=== PATIENT | female | born 1950 | race Caucasian/White ===

== ENCOUNTER → 2016-07-27 | Outpatient (CLI) | payer BC ==
[~2016-07-27] MED LIST: ATOR20TA66; HYDR25TA4; LISI40TA; POTA20TA8; PRAM0.5T9; SUCR1ORA5 PO
--- NOTE | 2016-07-28 09:37 | Diagnostic Imaging Report ---
Bilateral screening mammogram The current study was also evaluated with a Computer Aided Detection (CAD) system. Indication: Screening. No current complaints stated on the questionnaire. COMPARISON: 05/19/15. FINDINGS: The breasts are composed of scattered fibroglandular densities. There are vascular calcifications seen. There is an intramammary lymph node stable from prior exam seen in the outer aspect of the left breast. Allowing for technique and positional differences, no suspicious change is seen. IMPRESSION: No significant change. ACR BI-RADS Category 2: Benign findings. Result letter will be mailed to the patient. Note: At least 10% of breast cancer is not imaged by mammography. Dictated by: Dictated on workstation # [id number]
== END ==
LOC: RAD 09:29
PROVIDERS: ATTEND Family Medicine
DX: Z12.31 Encounter for screening mammogram for malignant neoplasm of breast (principal)
CPT/HCPCS: 77067

== ENCOUNTER → 2017-09-10 | Outpatient (CLI) | payer BC, MEDICARE ==
--- NOTE | 2017-09-10 20:03 | Diagnostic Imaging Report ---
INDICATION: Screening. COMPARISON: Comparison made with prior examinations from 07/27/2016 back through 10/26/2014. The current study was also evaluated with a Computer Aided Detection (CAD) system. 3D tomosynthesis was also performed and reviewed. FINDINGS: There are scattered fibroglandular densities bilaterally. There is an unchanged small well-circumscribed density in the subareolar region of the right breast. There are a few benign-type calcifications. There is a lymph node in the left axilla. There is no new dominant mass, spiculated lesion, or suspicious calcification identified. The skin, nipples, and axillae are unremarkable. IMPRESSION: Benign. ACR BI-RADS Category 2: Benign findings. Result letter will be mailed to the patient. Note: At least 10% of breast cancer is not imaged by mammography. Dictated by: Dictated on workstation # [id number]
== END ==
LOC: RAD 14:34
PROVIDERS: ATTEND Family Medicine
DX: Z12.31 Encounter for screening mammogram for malignant neoplasm of breast (principal)
CPT/HCPCS: 77067

== ENCOUNTER → 2018-09-17 | Outpatient (CLI) | payer MEDICARE ==
--- NOTE | 2018-09-18 10:55 | Diagnostic Imaging Report ---
EXAMINATION: Digital mammogram. INDICATION: Bilateral screening with 3D tomosynthesis and cad. This study was compared to the prior exam of 09/10/2017, 07/27/2016 and 05/19/2015. At this time there are no current complaints. The current study was also evaluated with a Computer Aided Detection (CAD) system. FINDINGS: The fibroglandular tissue in both breasts is heterogeneously dense. This does limit the sensitivity of this exam. Overall, there does not appear to have been any significant change when compared to the prior study. No primary or secondary sign of malignancy is noted. IMPRESSION: There is no radiographic evidence for malignancy. ACR BI-RADS Category 1: Negative. Result letter will be mailed to the patient. Note: At least 10% of breast cancer is not imaged by mammography. Dictated by: Dictated on workstation # [id number]
== END ==
LOC: RAD 08:50
PROVIDERS: ATTEND Family Medicine
DX: Z12.31 Encounter for screening mammogram for malignant neoplasm of breast (principal)
CPT/HCPCS: 77067

== ENCOUNTER → 2019-09-17 | Outpatient (CLI) | payer MEDICARE ==
--- NOTE | 2019-09-17 11:56 | Diagnostic Imaging Report ---
INDICATION: Bilateral leg pain. Segmental pressure evaluation was performed. Ankle brachial index on the right is normal at 1.17. Ankle-brachial index on the left is normal at 1.13. IMPRESSION: Normal ankle-brachial indices. Dictated by: Dictated on workstation # [id number]
== END ==
LOC: RAD 10:30
PROVIDERS: ATTEND Family Medicine
DX: M79.605 Pain in left leg (principal); M79.604 Pain in right leg
CPT/HCPCS: 93922

== ENCOUNTER → 2019-09-23 | Outpatient (CLI) | payer MEDICARE ==
--- NOTE | 2019-09-23 12:53 | Diagnostic Imaging Report ---
INDICATION: Routine screening. COMPARISON: 09/17/2018 and 09/10/2017. TECHNIQUE: 2D and 3D bilateral screening mammography was performed with CAD. FINDINGS: Scattered fibroglandular densities are identified bilaterally. The intraparenchymal lymph node in the outer left breast appears stable. The overall parenchymal pattern appears stable. No dominant mass or malignant appearing microcalcifications are seen. There are surgical clips in the left axilla. IMPRESSION: No mammographic features suspicious for malignancy are identified. ACR BI-RADS Category 2: Benign findings. Result letter will be mailed to the patient. Note: At least 10% of breast cancer is not imaged by mammography. Dictated by: Dictated on workstation # [id number]
== END ==
LOC: RAD 09:33
PROVIDERS: ATTEND Family Medicine
DX: Z12.31 Encounter for screening mammogram for malignant neoplasm of breast (principal)
CPT/HCPCS: 77063; 77067

== ENCOUNTER 2020-03-13 07:49 | Emergency (ER) | payer MEDICARE ==
[~2020-03-13] VITALS: Ht 154 cm; Wt 114.0 kg
[2020-03-13] MEDS ORDERED: ACETAMINOPHEN 500 MG TAB (TYLENOL) ONE (08:15)
[2020-03-13] MEDS ORDERED: LACTATED RINGERS 1,000 ML IV ONE ×2 (08:15→08:30)
[2020-03-13 08:25] LABS: BASOPHILS # (AUTO) 0.1 10^3/uL (0.0-0.1); BASOPHILS % (AUTO) 1 % (0-10); EOSINOPHILS # (AUTO) 0.4 10^3/uL (0.0-0.3); EOSINOPHILS % (AUTO) 4 % (0-10); HEMATOCRIT 37 % (35-52); LYMPHOCYTES # (AUTO) 1.9 10^3/uL (1.0-4.0); LYMPHOCYTES % (AUTO) 17 % (12-44); MEAN CORPUSCULAR HEMOGLOBIN 23 pg (25-34); MEAN CORPUSCULAR HGB CONC 30 g/dL (32-36); MEAN CORPUSCULAR VOLUME 76 fL (80-99); MEAN PLATELET VOLUME 9.2 fL (9.0-12.2); MONOCYTES # (AUTO) 0.7 10^3/uL (0.0-1.0); MONOCYTES % (AUTO) 7 % (0-12); NEUTROPHILS # (AUTO) 7.7 10^3/uL (1.8-7.8); NEUTROPHILS % (AUTO) 71 % (42-75); PLATELET COUNT 329 10^3/uL (130-400); WHITE BLOOD COUNT 10.7 10^3/uL (4.3-11.0)
[2020-03-13] MEDS ORDERED: ACETAMINOPHEN 500 MG TAB (TYLENOL) PO ONE (08:30)
[2020-03-13 08:31] LABS: ALBUMIN 4.2 GM/DL (3.2-4.5)
[2020-03-13 08:32] LABS: CHLORIDE 101 MMOL/L (98-107); POTASSIUM 3.2 MMOL/L (3.6-5.0); SODIUM 139 MMOL/L (135-145)
[2020-03-13 08:33] LABS: CALCIUM 9.4 MG/DL (8.5-10.1)
[2020-03-13 08:34] LABS: GLUCOSE 122 MG/DL (70-105); TOTAL PROTEIN 7.8 GM/DL (6.4-8.2)
[2020-03-13 08:35] LABS: CARBON DIOXIDE 24 MMOL/L (21-32)
[2020-03-13 08:36] LABS: BILIRUBIN,TOTAL 1.1 MG/DL (0.1-1.0)
[2020-03-13 08:37] LABS: ALKALINE PHOSPHATASE 109 U/L (40-136)
[2020-03-13 08:38] LABS: CREATININE SERUM 0.83 MG/DL (0.60-1.30); GFR ESTIMATED > 60
[2020-03-13 08:39] LABS: BUN/CREATININE RATIO 25
[2020-03-13 08:41] LABS: ALANINE AMINOTRANSFERASE 18 U/L (0-55)
[2020-03-13] MEDS ORDERED: lisINopril 10 MG (PRINIVIL) TABLET ONE (09:22)
[2020-03-13] MEDS ORDERED: lisINopril 20 MG (PRINIVIL) TABLET PO ONE (09:30)
[2020-03-13] MEDS ORDERED: lisINopril 10 MG (PRINIVIL) TABLET PO ONE (09:30)
[2020-03-13 09:38] LABS: BILIRUBIN,URINE NEGATIVE (NEGATIVE); CLARITY,URINE CLEAR; COLOR,URINE YELLOW; GLUCOSE, URINE (UA) NEGATIVE (NEGATIVE); KETONES,URINE NEGATIVE (NEGATIVE); LEUKOCYTE ESTERASE ,URINE NEGATIVE (NEGATIVE); NITRITE,URINE NEGATIVE (NEGATIVE); PROTEIN,URINE NEGATIVE (NEGATIVE)
[2020-03-13 09:48] LABS: BACTERIA,URINE NEGATIVE /HPF; RBC,URINE RARE /HPF; WBC,URINE 0-2 /HPF
--- NOTE | 2020-03-13 10:12 | Diagnostic Imaging Report ---
INDICATION: Shortness of air, cough, fever. Compared 01/12/2016 FINDINGS: Midline retrocardiac hernia chronic. No consolidating infiltrate. No failure pattern, effusion or pneumothorax. IMPRESSION: Stable chronic findings Dictated by: Dictated on workstation # [id number]
[2020-03-13] MEDS ORDERED: KETOROLAC 30 MG/ML VIAL IVP ONE (10:15)
[2020-03-13] MEDS ORDERED: IOHEXOL 350 MG/ML 100 ML (OMNIPAQUE 350) VIAL IV ONE (10:30)
[2020-03-13] MEDS ORDERED: HOLD METFORMIN - RECEIVED CONTRAST 20 ML VIAL IV SCH (10:30)
[2020-03-13] MEDS ORDERED: NS 100 ML (IVPB) BAG IV ONE (10:30)
--- NOTE | 2020-03-13 10:38 | ED General ---
General Chief Complaint: Respiratory Problems Stated Complaint: COUGH / SOA Nursing Triage Note: pt presents to ed with complaints of soa, cough, fever, and cramer starting yesterday. Nursing Sepsis Screen: Possible Sepsis Risk Source of Information: Patient Exam Limitations: No Limitations History of Present Illness Date Seen by Provider: Mar 13, 2020 Time Seen by Provider: 08:05 Initial Comments This 69-year-old woman presents to the emergency room with complaints of flulike symptoms that started yesterday. Symptoms include cough, shortness of breath, headache, fever, and myalgias. She has no known Covid exposures. She is noted to be tachycardic and hypertensive. She has not taken her blood pressure medications yet this morning. Allergies and Home Medications Allergies Coded Allergies: No Known Drug Allergies (Unverified , 01/12/16) Home Medications Omeprazole 20 Mg Tablet.dr, 20 MG PO BID Prescribed by: HANSEL BUSTOS on 03/13/20 1157 Sucralfate 1 Gm/10 Ml Oral.susp, 1 GM PO QID 30 minutes before meals and at bedtime. Prescribed by: HANSEL BUSTOS on 01/12/16 1017 Patient Home Medication List Home Medication List Reviewed: Yes Review of Systems Review of Systems Constitutional: see HPI EENTM: no symptoms reported Respiratory: see HPI Cardiovascular: see HPI Gastrointestinal: no symptoms reported Genitourinary: no symptoms reported : No Musculoskeletal: see HPI Skin: no symptoms reported Psychiatric/Neurological: See HPI Hematologic/Lymphatic: No Symptoms Reported Immunological/Allergic: no symptoms reported Past Fjkicji-Kvxogl-Pkcivg Hx Past Med/Social Hx: Reviewed Nursing Past Med/Soc Hx Patient Social History Alcohol Use: Denies Use Recreational Drug Use: No Smoking Status: Never a Smoker Recent Foreign Travel: No Contact w/Someone Who Travel: No Recent Infectious Disease Expo: No Recent Hopitalizations: No Past Medical History Surgeries: Yes (nevus resection from arm) Respiratory: No Cardiac: Yes Hypertension Neurological: No 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 oz. 90.611820ih; 48.00 BMI Method:Estimated General Appearance: WD/WN, Obese, Other (Tachypneic) HEENT: PERRL/EOMI, Normal ENT Inspection Neck: Normal Inspection Respiratory: Lungs Clear, No Accessory Muscle Use, No Respiratory Distress, Decreased Breath Sounds, Other (Mildly tachypneic) Cardiovascular: No Edema, No Murmur, Tachycardia Gastrointestinal: Normal Bowel Sounds, Non Tender, Soft Extremity: Normal Inspection, No Pedal Edema, Other (Calfs bilaterally tender consistent with generalized myalgias and muscle tenderness throughout the body) Neurologic/Psychiatric: Alert, Oriented x3, No Motor/Sensory Deficits, Normal 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, 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 Skin: Normal Color, Warm/Dry Progress/Results/Core Measures Suspected Sepsis Recent Fever Within 48 Hours: Yes Infection Criteria Present: Suspected New Infection New/Unexplained Altered Menta: No Sepsis Screen: Possible Sepsis Risk SIRS Temperature: Pulse: 97 Respiratory Rate: 18 Laboratory Tests 03/13/20 08:08: White Blood Count 10.7 Blood Pressure 191 /101 Mean: 131 Laboratory Tests 03/13/20 08:08: Creatinine 0.83, Platelet Count 329, Total Bilirubin 1.1H Results/Orders Lab Results Laboratory Tests Test 03/13/20 07:15 03/13/20 08:08 03/13/20 09:30 Range/Units D-Dimer 0.59 H 0.00-0.49 UG/ML Troponin I < 0.028 <0.028 NG/ML B-Type Natriuretic Peptide 22.8 <100.0 PG/ML White Blood Count 10.7 4.3-11.0 10^3/uL Red Blood Count 4.84 3.80-5.11 10^6/uL Hemoglobin 11.0 L 11.5-16.0 g/dL Hematocrit 37 35-52 % Mean Corpuscular Volume 76 L 80-99 fL Mean Corpuscular Hemoglobin 23 L 25-34 pg Mean Corpuscular Hemoglobin Concent 30 L 32-36 g/dL Red Cell Distribution Width 17.8 H 10.0-14.5 % Platelet Count 329 130-400 10^3/uL Mean Platelet Volume 9.2 9.0-12.2 fL Immature Granulocyte % (Auto) 0 % Neutrophils (%) (Auto) 71 42-75 % Lymphocytes (%) (Auto) 17 12-44 % Monocytes (%) (Auto) 7 0-12 % Eosinophils (%) (Auto) 4 0-10 % Basophils (%) (Auto) 1 0-10 % Neutrophils # (Auto) 7.7 1.8-7.8 10^3/uL Lymphocytes # (Auto) 1.9 1.0-4.0 10^3/uL Monocytes # (Auto) 0.7 0.0-1.0 10^3/uL Eosinophils # (Auto) 0.4 H 0.0-0.3 10^3/uL Basophils # (Auto) 0.1 0.0-0.1 10^3/uL Immature Granulocyte # (Auto) 0.0 0.0-0.1 10^3/uL Sodium Level 139 135-145 MMOL/L Potassium Level 3.2 L 3.6-5.0 MMOL/L Chloride Level 101 98-107 MMOL/L Carbon Dioxide Level 24 21-32 MMOL/L Anion Gap 14 5-14 MMOL/L Blood Urea Nitrogen 21 H 7-18 MG/DL Creatinine 0.83 0.60-1.30 MG/DL Estimat Glomerular Filtration Rate > 60 BUN/Creatinine Ratio 25 Glucose Level 122 H 70-105 MG/DL Calcium Level 9.4 8.5-10.1 MG/DL Corrected Calcium 9.2 8.5-10.1 MG/DL Total Bilirubin 1.1 H 0.1-1.0 MG/DL Aspartate Amino Transf (AST/SGOT) 24 5-34 U/L Alanine Aminotransferase (ALT/SGPT) 18 0-55 U/L Alkaline Phosphatase 109 40-136 U/L Lactate Dehydrogenase 315 H 125-220 U/L C-Reactive Protein High Sensitivity 0.99 H 0.00-0.50 MG/DL Total Protein 7.8 6.4-8.2 GM/DL Albumin 4.2 3.2-4.5 GM/DL Procalcitonin 0.01 <0.10 NG/ML Coronavirus 2019 ([facility]) Negative Negative Urine Color YELLOW Urine Clarity CLEAR Urine pH 8.0 5-9 Urine Specific [place] 1.015 L 1.016-1.022 Urine Protein NEGATIVE NEGATIVE Urine Glucose (UA) NEGATIVE NEGATIVE Urine Ketones NEGATIVE NEGATIVE Urine Nitrite NEGATIVE NEGATIVE Urine Bilirubin NEGATIVE NEGATIVE Urine Urobilinogen 0.2 < = 1.0 MG/DL Urine Leukocyte Esterase NEGATIVE NEGATIVE Urine RBC (Auto) NEGATIVE NEGATIVE Urine RBC RARE /HPF Urine WBC 0-2 /HPF Urine Squamous Epithelial Cells 2-5 /HPF Urine Crystals NONE /LPF Urine Bacteria NEGATIVE /HPF Urine Casts NONE /LPF Urine Mucus NEGATIVE /LPF Urine Culture Indicated NO Micro Results Microbiology 03/13/20 Influenza Types A,B Antigen (ESPER[facility]ZA) - Final, Complete My Orders Orders - HANSEL MATA MD Lactated Ringers (Lr 1000 Ml Iv Solution (03/13/20 08:15) Acetaminophen Tablet (Tylenol Tablet) (03/13/20 08:30) Ed Iv/Invasive Line Start (03/13/20 08:17) Lactated Ringers (Lr 1000 Ml Iv Solution (03/13/20 08:30) Procalcitonin (Pct) (03/13/20 08:17) Hs C Reactive Protein (03/13/20 08:17) LDH (03/13/20 08:17) Influenza A And B Antigens (03/13/20 08:17) Covid 19 Inhouse Test (03/13/20 08:17) Cbc With Automated Diff (03/13/20 08:17) Comprehensive Metabolic Panel (03/13/20 08:17) Ua Culture If Indicated (03/13/20 08:17) Acetaminophen Tablet (Tylenol Tablet) (03/13/20 08:15) Chest 1 View, Ap/Pa Only (03/13/20 09:16) Coronavirus Sars-Cov-2 So 2018 (03/13/20 09:17) Lisinopril Tablet (Zestril Tablet) (03/13/20 09:30) Lisinopril Tablet (Zestril Tablet) (03/13/20 09:30) Lisinopril Tablet (Zestril Tablet) (03/13/20 09:22) BNP (03/13/20 09:26) Fibrin Degradation Products (03/13/20 09:26) Troponin I (03/13/20 09:26) Ekg Tracing (03/13/20 09:26) Ct Angio Chest W (03/13/20 10:13) Ketorolac Injection (Toradol Injection) (03/13/20 10:15) Iohexol Injection (Omnipaque 350 Mg/Ml 1 (03/13/20 10:30) Received Contrast (Hold Metformin- Contr (03/13/20 10:30) Ns (Ivpb) (Sodium Chloride 0.9% Ivpb Bag (03/13/20 10:30) Diphenhydramine Injection (Benadryl Inje (03/13/20 11:00) Methylprednisolone Sod Succ (Solu-Medrol (03/13/20 11:00) Famotidine Injection (Pepcid Injection) (03/13/20 11:00) Diphenhydramine Injection (Benadryl Inje (03/13/20 10:53) Methylprednisolone Sod Succ (Solu-Medrol (03/13/20 10:54) Famotidine Injection (Pepcid Injection) (03/13/20 10:54) Medications Given in ED Current Medications Medications Dose Ordered Sig/Kelly Route Start Time Stop Time Status Last Admin Dose Admin Acetaminophen 1,000 mg ONCE ONCE PO 03/13/20 08:30 03/13/20 08:31 DC 03/13/20 08:20 1,000 MG Diphenhydramine HCl 25 mg ONCE ONCE IVP 03/13/20 11:00 03/13/20 11:01 DC 03/13/20 11:01 25 MG Famotidine 20 mg ONCE ONCE IVP 03/13/20 11:00 03/13/20 11:01 DC 03/13/20 11:01 20 MG Iohexol 100 ml ONCE ONCE IV 03/13/20 10:30 03/13/20 10:31 DC 03/13/20 10:30 88 ML Ketorolac Tromethamine 15 mg ONCE ONCE IVP 03/13/20 10:15 03/13/20 10:16 DC 03/13/20 10:55 15 MG Lactated Ringer's 1,000 ml @ 0 mls/hr Q0M ONCE IV 03/13/20 08:30 03/13/20 08:31 DC 03/13/20 08:21 0 MLS/HR Lisinopril 40 mg ONCE ONCE PO 03/13/20 09:30 03/13/20 09:31 DC 03/13/20 09:33 40 MG Methylprednisolone Sodium Succinate 125 mg ONCE ONCE IVP 03/13/20 11:00 03/13/20 11:01 DC 03/13/20 11:00 125 MG Sodium Chloride 100 ml ONCE ONCE IV 03/13/20 10:30 03/13/20 10:31 DC 03/13/20 10:30 80 ML Vital Signs/I&O 03/13/20 08:12 Temp 37.8 Pulse 97 Resp 18 B/P (MAP) 191/101 (131) Pulse Ox 97 Capillary Refill : Less Than 3 Seconds Blood Pressure Mean: 131 Progress Note : Time: 10:37 Progress Note Patient has been seen and examined. Rapid flu and Covid swabs were negative. The backup Covid PCR test is pending. Cardiopulmonary work-up has been grossly unremarkable except for slightly elevated D-dimer. I discussed CT angiogram with the patient and she is agreeable to proceeding with CT. Interpretation is still pending at this time. Patient received Tylenol and a liter of IV fluid. She is feeling better except for headache. Toradol will be administered next. Lisinopril 40 mg was given for the hypertension. ECG Initial ECG Impression Date: Mar 13, 2020 Initial ECG Impression Time: 09:27 Initial ECG Rate: 91 Initial ECG Rhythm: Normal Sinus Initial ECG Intervals: Normal Initial ECG Impression: Normal Comment Normal sinus rhythm with no ST elevation or depression. No abnormal intervals or axis deviation. Diagnostic Imaging Diagonstic Imaging: Xray Plain Films/CT/US/NM/MRI: chest Comments Chest x-ray viewed by me and report reviewed. See report below: NAME: CAPO [facility] REC#: [id number] PT STATUS: REG ER : 1950 PHYSICIAN: HANSEL MATA MD ADMIT DATE: 03/13/20/ER Draft Date of Exam:03/13/20 CHEST 1 VIEW, AP/PA ONLY INDICATION: Shortness of air, cough, fever. Compared 01/12/2016 FINDINGS: Midline retrocardiac hernia chronic. No consolidating infiltrate. No failure pattern, effusion or pneumothorax. IMPRESSION: Stable chronic findings Dictated on workstation # [id number] Dict: 03/13/20 1003 Trans: 03/13/20 1010 [facility] [id number] Interpreted by: EDU VARELA Departure Impression Primary Impression: Flu-like symptoms Additional Impressions: Person under investigation for COVID-19 Essential hypertension Hiatal hernia Nodular thyroid disease Fatty liver Disposition: 01 HOME, SELF-CARE Condition: Improved Departure-Patient Inst. Decision time for Depature: 11:45 Referrals: LUIS ANTONIO BELL MD (PCP/Family) Primary Care Physician Patient Instructions: Coronavirus Disease 2019 (COVID-19) Overview, VIRAL SYNDROME Add. Discharge Instructions: Remain in quarantine until the results of your COVID-19 test is known. If your test is positive, follow health department instructions regarding quarantine. Drink plenty of clear liquids. You may take Tylenol and/or ibuprofen for pain or fever. Follow-up with your primary care provider next week. Call on Sunday to make arrangements. You need to discuss the incidental findings on your CT scan with your doctor. Start omeprazole as prescribed. Return to the emergency room if you have worsening symptoms. All discharge instructions reviewed with patient and/or family. Voiced understanding. Scripts Omeprazole (Omeprazole) 20 Mg Tablet. 20 MG PO BID, #60 TAB Prov: HANSEL MATA MD 03/13/20 Copy Copies To 1: LUIS ANTONIO BELL MD, JOSHUA T MD Mar 13, 2020 10:38
[2020-03-13] MEDS ORDERED: diphenhydrAMINE 50 MG/ML INJ (BENADRYL) ONE (10:53)
[2020-03-13] MEDS ORDERED: methylPREDNISolone 125 MG (Solu-MEDROL) VIAL ONE (10:54)
[2020-03-13] MEDS ORDERED: FAMOTIDINE 20MG/2ML IV (PEPCID) ONE (10:54)
[2020-03-13] MEDS ORDERED: methylPREDNISolone 125 MG (Solu-MEDROL) VIAL IVP ONE (11:00)
[2020-03-13] MEDS ORDERED: FAMOTIDINE 20MG/2ML IV (PEPCID) IVP ONE (11:00)
[2020-03-13] MEDS ORDERED: diphenhydrAMINE 50 MG/ML INJ (BENADRYL) IVP ONE (11:00)
--- NOTE | 2020-03-13 11:16 | Diagnostic Imaging Report ---
PROCEDURE: CT angiography of the chest with contrast. TECHNIQUE: Multiple contiguous axial images were obtained through the chest after uneventful bolus administration of intravenous contrast. 3D reconstructed CTA MIP acquisitions were also performed. Auto Exposure Controls were utilized during the CT exam to meet ALARA standards for radiation dose reduction. INDICATION: Chest pain, shortness of breath, suspicion for pulmonary embolus. EXAMINATION: CTA of the chest from 03/13/2020 FINDINGS: There are no central or proximal segmental pulmonary emboli. The small peripheral vessels are not completely opacified. The thoracic aorta demonstrates atherosclerotic disease with no acute abnormality appreciated. There is no mediastinal or hilar adenopathy. There is a small pericardial effusion. No pleural effusions. There is a moderate-sized hiatal hernia. There is no infiltrate or acute process within the visualized lungs. A few scattered areas of atelectasis or scarring noted. No pneumothorax. Visualized upper abdomen demonstrates fatty infiltration throughout the visualized liver. No acute osseous abnormalities. There is prominence and mild nodularity within the thyroid sonographic characterization on a nonemergent basis could better characterize. IMPRESSION: 1. No central or proximal segmental pulmonary embolus with other incidental findings throughout the chest as above. 2. Moderate-Sized hiatal hernia. Dictated by: Dictated on workstation # [id number]
[2020-03-13] MEDS ORDERED: OMEP20TA7 PO (11:57)
[2020-03-13 12:47] VITALS: BP 132/74
== END 2020-03-13 12:46 | disposition home or self-care (01) ==
LOC: EDUNIT# 07:49 → ER 07:51
DX: J11.1 Influenza due to unidentified influenza virus with other respiratory manifestations (principal); I10 Essential (primary) hypertension; K44.9 Diaphragmatic hernia without obstruction or gangrene; E07.89 Other specified disorders of thyroid; K76.0 Fatty (change of) liver, not elsewhere classified; E66.9 Obesity, unspecified; K21.9 Gastro-esophageal reflux disease without esophagitis; Z68.42 Body mass index [BMI] 45.0-49.9, adult; Z20.828 Contact with and (suspected) exposure to other viral communicable diseases
CPT/HCPCS: 71045; 71275; 80053; 81000; 83615; 83880; 84145; 84484; 85025; 85379; 86141; 87804; 99284; U0002; 36415; 87635

== ENCOUNTER → 2020-04-06 | Outpatient (CLI) | payer MEDICARE ==
[~2020-04-06] MED LIST changes: +OMEP20TA7 PO
--- NOTE | 2020-04-06 15:01 | Diagnostic Imaging Report ---
INDICATION: Postmenopausal state. COMPARISON: None available. FINDINGS: AP Spine L1-L4: [BMD (g/cm2): 1.181] [T-Score: -0.2] [Z-Score: 0.3] [BMD Previous: NA] [BMD % Change: NA] LT Hip Neck: [BMD (g/cm2): 0.930] [T-Score: -0.8] [Z-Score: 0.1] LT Hip Total: [BMD (g/cm2):1.031] [T-Score:0.2] [Z-Score: 0.8] [BMD Previous: NA] [BMD % Change: NA] RT Hip Neck: [BMD (g/cm2):1.037] [T-Score:0.0] [Z-Score:0.9] RT Hip Total: [BMD (g/cm2):1.044] [T-score:0.3] [Z-Score:0.9] [BMD Previous:NA] [BMD % Change:NA] *Indicates significant change from prior examination based on 95% confidence level. World Health Organization criteria for BMD interpretation classify patients as Normal (T-score at or above -1.0), Osteopenic (T-score between -1.0 and -2.5) or Osteoporotic (T-score at or below -2.5). LIMITATIONS AND MODIFICATION: None. IMPRESSION: 1. Normal bone mineral density. 2. Baseline examination. 3. See below National Osteoporosis Foundation guidelines on when to potentially initiate pharmacologic therapy. Based on the National Osteoporosis Foundation Guidelines, pharmacologic treatment should be initiated in any of the following, unless clinical conditions suggest otherwise: * Any patient with prior fragility fracture of the hip or vertebrae. A spine fracture indicates 5X risk for subsequent spine fracture and 2X risk for subsequent hip fracture. * Osteoporosis (T-score <-2.5). * Postmenopausal women and men age 50 and older with low bone mass/osteopenia (T-score between -1.0 and -2.5) by DXA and 10-year major osteoporotic fracture greater than 20% or a 10-year probability of hip fracture greater than 3%. These fracture risks are supplied above in the FRAX score, if applicable. * Clinician judgement and/or patient preferences may indicate treatment for people with 10-year fracture probabilities above or below these levels. Dictated by: Dictated on workstation # [id number]
== END ==
LOC: RAD 10:47
PROVIDERS: ATTEND Family Medicine
DX: Z78.0 Asymptomatic menopausal state (principal)
CPT/HCPCS: 77080

== ENCOUNTER → 2020-04-22 | Outpatient (CLI) | payer MEDICARE | LOC: LAB 10:26 | PROVIDERS: ATTEND Family Medicine | DX: E87.6 Hypokalemia (principal) ==

== ENCOUNTER → 2020-09-27 | Outpatient (CLI) | payer MEDICARE ==
[~2020-09-27] MED LIST changes: -LISI40TA; +LISI40TA9
--- NOTE | 2020-09-28 12:32 | Diagnostic Imaging Report ---
INDICATION: Routine screening. Comparison is made with prior mammogram from 09/23/2019 and 09/17/2018. 2-D and 3-D bilateral screening mammography was performed with CAD. Both breasts are heterogeneously dense, limiting the sensitivity of mammography. Intraparenchymal lymph node in the outer left breast is stable. No new mass or malignant appearing microcalcifications are seen. Axillae are unremarkable apart from clips on the left. IMPRESSION: BI-RADS Category 2 No mammographic features suspicious for malignancy are identified. ACR BI-RADS Category 2: Benign findings. Result letter will be mailed to the patient. Note: At least 10% of breast cancer is not imaged by mammography. Dictated by: Dictated on workstation # [id number]
== END ==
LOC: RAD 14:45
PROVIDERS: ATTEND Family Medicine
DX: Z12.31 Encounter for screening mammogram for malignant neoplasm of breast (principal)
CPT/HCPCS: 77063; 77067

== ENCOUNTER 2021-05-19 22:51 | Inpatient (IN) | payer MEDICARE ==
[~2021-05-19] VITALS: Ht 155 cm; Wt 103.2 kg
[~2021-05-19 22:51] MED LIST changes: +POTA-169; -POTA20TA8; -PRAM0.5T9; +PRAM0.5T9 PO
[2021-05-19 23:19] LABS: BASOPHILS % (AUTO) 1 % (0-10); EOSINOPHILS # (AUTO) 0.1 10^3/uL (0.0-0.3); EOSINOPHILS % (AUTO) 1 % (0-10); HEMATOCRIT 45 % (35-52); HEMOGLOBIN 14.6 g/dL (11.5-16.0); LYMPHOCYTES # (AUTO) 1.5 10^3/uL (1.0-4.0); LYMPHOCYTES % (AUTO) 33 % (12-44); MEAN CORPUSCULAR HEMOGLOBIN 30 pg (25-34); MEAN CORPUSCULAR HGB CONC 33 g/dL (32-36); MEAN CORPUSCULAR VOLUME 93 fL (80-99); MEAN PLATELET VOLUME 9.7 fL (9.0-12.2); MONOCYTES # (AUTO) 0.8 10^3/uL (0.0-1.0); MONOCYTES % (AUTO) 16 % (0-12); NEUTROPHILS # (AUTO) 2.3 10^3/uL (1.8-7.8); NEUTROPHILS % (AUTO) 49 % (42-75); PLATELET COUNT 230 10^3/uL (130-400); WHITE BLOOD COUNT 4.6 10^3/uL (4.3-11.0)
[2021-05-19 23:21] LABS: POTASSIUM 3.4 MMOL/L (3.6-5.0)
[2021-05-19 23:23] LABS: CALCIUM 8.8 MG/DL (8.5-10.1)
[2021-05-19 23:24] LABS: TOTAL PROTEIN 7.6 GM/DL (6.4-8.2)
[2021-05-19 23:26] LABS: BILIRUBIN,TOTAL 0.8 MG/DL (0.1-1.0)
[2021-05-19 23:28] LABS: CREATININE SERUM 0.78 MG/DL (0.60-1.30)
[2021-05-19] MEDS ORDERED: KETOROLAC 30 MG/ML VIAL IVP ONE (23:30)
[2021-05-19] MEDS ORDERED: LACTATED RINGERS 1,000 ML IV ONE (23:30)
[2021-05-19] MEDS ORDERED: ONDANSETRON 4 MG/2 ML (SDV) Z0FRAN IVP ONE (23:30)
[2021-05-19] MEDS ORDERED: ACETAMINOPHEN 500 MG TAB (TYLENOL) PO ONE (23:30)
--- NOTE | 2021-05-19 23:52 | ED General ---
General Chief Complaint: COVID19 Suspect/Confirmed Stated Complaint: POSSIBLE COVID Nursing Triage Note: Pt arrives per EMS w/ c/o fever, headache, and cough. Source of Information: Patient Exam Limitations: No Limitations History of Present Illness Date Seen by Provider: May 19, 2021 Time Seen by Provider: 23:10 Initial Comments This is 70-year-old woman presents to the emergency room with complaints of 3 days of cough, headache, fatigue, fevers, and nausea. She has had no known COVID-19 exposures. She has not been vaccinated for influenza or COVID-19. Allergies and Home Medications Allergies Coded Allergies: Iodinated Contrast Media (Verified Allergy, Intermediate, Facial Swelling, 03/22/20) Patient developed immediate eyelid swelling after contrast. Patient Home Medication List Home Medication List Reviewed: Yes Atorvastatin Calcium (Atorvastatin Calcium) 20 Mg Tablet, (Reported) Entered as Reported by: ANGELICA DOSS on 01/12/16 0846 Hydrochlorothiazide (Hydrochlorothiazide) 25 Mg Tablet, (Reported) Entered as Reported by: ANGELICA DOSS on 01/12/16 0846 Lisinopril (Lisinopril) 40 Mg Tablet, (Reported) Entered as Reported by: ANGELICA DOSS on 01/12/16 0846 Omeprazole (Omeprazole) 20 Mg Tablet.dr, 20 MG PO BID Prescribed by: HANSEL BUSTOS on 03/13/20 1157 Potassium Chloride (Klor-Con M20) 20 Meq Tab.er.prt, (Reported) Entered as Reported by: ANGELICA DOSS on 01/12/16 0846 Pramipexole Di-HCl (Pramipexole Dihydrochloride) 0.5 Mg Tablet, (Reported) Entered as Reported by: ANGELICA DOSS on 01/12/16 0846 Sucralfate (Carafate) 1 Gm/10 Ml Oral.susp, 1 GM PO QID Prescribed by: HANSEL UBSTOS on 01/12/16 1017 Review of Systems Review of Systems Constitutional: see HPI EENTM: no symptoms reported Respiratory: see HPI Cardiovascular: no symptoms reported Gastrointestinal: see HPI Genitourinary: no symptoms reported : No Musculoskeletal: no symptoms reported Skin: no symptoms reported Psychiatric/Neurological: See HPI Hematologic/Lymphatic: No Symptoms Reported Immunological/Allergic: no symptoms reported Past Vvnmwno-Lddtqt-Gybyex Hx Patient Social History Tobacco Use?: No Use of E-Cig and/or Vaping dev: No Substance use?: No Alcohol Use?: No Immunizations Up To Date First/Initial COVID19 Vaccinat: Unvaccination Past Medical History Surgeries: Yes (nevus resection from arm) Respiratory: No Cardiac: Yes Hypertension Neurological: No : No 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 oz. 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 Skin: Normal Color, Warm/Dry Progress/Results/Core Measures Suspected Sepsis SIRS Temperature: Pulse: 89 Respiratory Rate: 17 Laboratory Tests 05/19/21 23:00: White Blood Count 4.6 Blood Pressure 143 /99 Mean: 114 Laboratory Tests 05/19/21 23:00: Creatinine 0.78, Platelet Count 230, Total Bilirubin 0.8 Results/Orders Lab Results Laboratory Tests Test 05/19/21 23:00 05/19/21 23:10 05/19/21 23:18 05/20/21 00:16 Range/Units White Blood Count 4.6 4.3-11.0 10^3/uL Red Blood Count 4.85 3.80-5.11 10^6/uL Hemoglobin 14.6 11.5-16.0 g/dL Hematocrit 45 35-52 % Mean Corpuscular Volume 93 80-99 fL Mean Corpuscular Hemoglobin 30 25-34 pg Mean Corpuscular Hemoglobin Concent 33 32-36 g/dL Red Cell Distribution Width 13.4 10.0-14.5 % Platelet Count 230 130-400 10^3/uL Mean Platelet Volume 9.7 9.0-12.2 fL Immature Granulocyte % (Auto) 0 % Neutrophils (%) (Auto) 49 42-75 % Lymphocytes (%) (Auto) 33 12-44 % Monocytes (%) (Auto) 16 H 0-12 % Eosinophils (%) (Auto) 1 0-10 % Basophils (%) (Auto) 1 0-10 % Neutrophils # (Auto) 2.3 1.8-7.8 10^3/uL Lymphocytes # (Auto) 1.5 1.0-4.0 10^3/uL Monocytes # (Auto) 0.8 0.0-1.0 10^3/uL Eosinophils # (Auto) 0.1 0.0-0.3 10^3/uL Basophils # (Auto) 0.0 0.0-0.1 10^3/uL Immature Granulocyte # (Auto) 0.0 0.0-0.1 10^3/uL D-Dimer 0.42 0.00-0.49 UG/ML Sodium Level 137 135-145 MMOL/L Potassium Level 3.4 L 3.6-5.0 MMOL/L Chloride Level 103 98-107 MMOL/L Carbon Dioxide Level 20 L 21-32 MMOL/L Anion Gap 14 5-14 MMOL/L Blood Urea Nitrogen 12 7-18 MG/DL Creatinine 0.78 0.60-1.30 MG/DL Estimat Glomerular Filtration Rate 82 BUN/Creatinine Ratio 15 Glucose Level 101 70-105 MG/DL Calcium Level 8.8 8.5-10.1 MG/DL Corrected Calcium 8.8 8.5-10.1 MG/DL Total Bilirubin 0.8 0.1-1.0 MG/DL Aspartate Amino Transf (AST/SGOT) 50 H 5-34 U/L Alanine Aminotransferase (ALT/SGPT) 46 0-55 U/L Alkaline Phosphatase 109 40-136 U/L C-Reactive Protein High Sensitivity 1.27 H 0.00-0.50 MG/DL Total Protein 7.6 6.4-8.2 GM/DL Albumin 4.0 3.2-4.5 GM/DL Magnesium Level 2.1 1.6-2.4 MG/DL Influenza Type A Antigen NEGATIVE NEGATIVE Influenza Type B Antigen NEGATIVE NEGATIVE SARS-CoV-2 RNA (RT-PCR) Positive H Negative Urine Color YELLOW Urine Clarity CLEAR Urine pH 6.5 5-9 Urine Specific [place] 1.020 1.016-1.022 Urine Protein NEGATIVE NEGATIVE Urine Glucose (UA) NEGATIVE NEGATIVE Urine Ketones NEGATIVE NEGATIVE Urine Nitrite NEGATIVE NEGATIVE Urine Bilirubin NEGATIVE NEGATIVE Urine Urobilinogen 0.2 < = 1.0 MG/DL Urine Leukocyte Esterase NEGATIVE NEGATIVE Urine RBC (Auto) NEGATIVE NEGATIVE Urine RBC NONE /HPF Urine WBC 0-2 /HPF Urine Squamous Epithelial Cells 0-2 /HPF Urine Crystals NONE /LPF Urine Bacteria TRACE /HPF Urine Casts NONE /LPF Urine Mucus SMALL H /LPF Urine Culture Indicated NO My Orders Orders - HANSEL MATA MD Cbc With Automated Diff (05/19/21 23:11) Comprehensive Metabolic Panel (05/19/21 23:11) Hs C Reactive Protein (05/19/21 23:11) Chest 1 View, Ap/Pa Only (05/19/21 23:11) Covid 19 Inhouse Test (05/19/21 23:11) Influenza A & B Antigens (05/19/21 23:11) Ed Iv/Invasive Line Start (05/19/21 23:11) Ketorolac Injection (Toradol Injection) (05/19/21 23:30) Acetaminophen Tablet (Tylenol Tablet) (05/19/21 23:30) Lactated Ringers (Lr 1000 Ml Iv Solution (05/19/21 23:30) Ondansetron Injection (Zofran Injectio (05/19/21 23:30) Magnesium (05/19/21 23:25) Ua Culture If Indicated (05/19/21 23:25) Fibrin Degradation Products (05/19/21 23:58) Dexamethasone Injection (Decadron Inje (05/20/21 00:45) Medications Given in ED Current Medications Medications Dose Ordered Sig/Kelly Route Start Time Stop Time Status Last Admin Dose Admin Acetaminophen 1,000 mg ONCE ONCE PO 05/19/21 23:30 05/19/21 23:31 DC 05/19/21 23:44 1,000 MG Ketorolac Tromethamine 15 mg ONCE ONCE IVP 05/19/21 23:30 05/19/21 23:31 DC 05/19/21 23:46 15 MG Lactated Ringer's 1,000 ml @ 0 mls/hr Q0M ONCE IV 05/19/21 23:30 05/19/21 23:31 DC 05/19/21 23:42 1,000 MLS/HR Ondansetron HCl 8 mg ONCE ONCE IVP 05/19/21 23:30 05/19/21 23:31 DC 05/19/21 23:45 8 MG Vital Signs/I&O 05/19/21 05/19/21 22:55 23:55 Temp 38.7 Pulse 89 Resp 17 B/P (MAP) 143/99 (114) Pulse Ox 94 88 O2 Delivery Room Air Nasal Cannula O2 Flow Rate 2.00 Capillary Refill : Less Than 3 Seconds Blood Pressure Mean: 114 Progress Note #1: Time: 23:53 Progress Note Patient was treated with Toradol, IV fluids, Tylenol, and Zofran. COVID-19 swab returned positive. I discussed EUA oral medications and patient would like to pursue these. However, her oxygen saturations did drop to about 88% when off nasal cannula. Due to the wedge-shaped infiltrate in the left lung and hypoxia, I am adding a D-dimer to her work-up. Progress Note #2: Time: 00:43 Progress Note D-dimer was negative. Patient felt much better with treatments. However, because she is requiring nasal cannula oxygen support and has risk factors including age, obesity, unvaccinated status, and hypertension, admission is felt most appropriate at this time. We discussed CODE STATUS and she requests full code. Dexamethasone is being administered in the ER. Antibiotics do not appear to be indicated at this time. Case was discussed with Dr. Leslie. Patient is willing to use emergency authorized experimental medications if necessary. Diagnostic Imaging Diagonstic Imaging: Xray Plain Films/CT/US/NM/MRI: chest Comments Chest x-ray reviewed by me and compared with prior. Report not yet available. There appears to be new wedge shaped infiltrate in the left mid lung. Departure Communication (Admissions) Time/Spoke to Admitting Phy: 00:35 Dr. Leslie Impression Primary Impression: Pneumonia due to COVID-19 virus Additional Impression: Hypoxia Disposition: ADMITTED INPATIENT Condition: Improved Admissions Decision to Admit Reason: Admit from ER (General) Decision to Admit/Date: May 19, 2021 Time/Decision to Admit Time: 23:55 Departure-Patient Inst. Referrals: LUIS ANTONIO BELL MD (PCP/Family) Primary Care Physician HANSEL MATA MD May 19, 2021 23:52
[2021-05-20 00:27] LABS: BILIRUBIN,URINE NEGATIVE (NEGATIVE); CLARITY,URINE CLEAR; COLOR,URINE YELLOW; GLUCOSE, URINE (UA) NEGATIVE (NEGATIVE); KETONES,URINE NEGATIVE (NEGATIVE); LEUKOCYTE ESTERASE ,URINE NEGATIVE (NEGATIVE); NITRITE,URINE NEGATIVE (NEGATIVE); PH,URINE 6.5 (5-9); PROTEIN,URINE NEGATIVE (NEGATIVE)
[2021-05-20 00:37] LABS: BACTERIA,URINE TRACE /HPF; SQUAMOUS EPITHELIAL CELL,UR 0-2 /HPF; WBC,URINE 0-2 /HPF
[2021-05-20] MEDS ORDERED: LACTATED RINGERS 1,000 ML IV ONE (01:28)
[2021-05-20] MEDS ORDERED: ENOXAPARIN 40 MG/0.4 ML (LOVENOX) SYR SC SCH ×2 (02:15→09:00)
[2021-05-20] MEDS ORDERED: ONDANSETRON 4 MG/2 ML (SDV) Z0FRAN IV PRN (02:15)
[2021-05-20] MEDS ORDERED: guaiFENesin SYRUP 100 MG/5 ML 10 ML (ROBITUSSIN SF) PO PRN (02:15)
[2021-05-20] MEDS ORDERED: IBUPROFEN 600 MG (MOTRIN) TAB PO PRN (02:15)
[2021-05-20] MEDS ORDERED: ACETAMINOPHEN 325 MG TABLET PO PRN (02:15)
[2021-05-20] MEDS ORDERED: LACTATED RINGERS 1,000 ML IV SCH (02:15)
[2021-05-20] MEDS ORDERED: RT-ALBUTEROL HFA 8.5 GM INHALER IH PRN (02:30)
[2021-05-20 02:31] VITALS: BP 156/79
[2021-05-20 04:00] VITALS: BP 174/90
--- NOTE | 2021-05-20 07:01 | Diagnostic Imaging Report ---
HISTORY: Cough COMPARISON: 03/13/2020 TECHNIQUE: Frontal view of the chest FINDINGS: Lung volumes are normal. There is mild airspace opacity in the left lung base which appears increased compared to the prior exam. There is no pleural effusion or pneumothorax. The cardiac silhouette is stable in size. Surgical clips are seen at the left axilla. IMPRESSION: 1. Mildly increased left basilar airspace opacities, may represent atelectasis or infiltrate. Dictated by: Dictated on workstation # [id number]
[2021-05-20 07:35] VITALS: BP 132/74
[2021-05-20] MEDS: RT-ALBUTEROL HFA 8.5 GM INHALER IH SCH ×2 (08:28→11:52)
[2021-05-20 11:48] VITALS: BP 137/75
--- NOTE | 2021-05-20 12:43 | Short Stay Summary ---
History of Present Illness History of Present Illness Reason for visit/HPI 70 yo F that presented with 3 days of cough and shortness of breath. Patient denies any known exposures. States that she does not have a baseline oxygen need at home but was feeling more short of breathe the last few days. She has not been taking anything OTC to help with symptoms. She reports some chills but has not had any objective fevers. ON: States that she has been off oxygen since early this AM. She has been up moving around the room and feels much better. She is interested in getting Covid vaccine. Date of Admission May 20, 2021 at 00:41 Date of Discharge 05/20/21 Time Seen by Provider: 11:00 Attending Physician Alexa Leslie MD Admitting Physician Carol Ann Sexton MD Consult Allergies and Home Medications Allergies Coded Allergies: Iodinated Contrast Media (Verified Allergy, Intermediate, Facial Swelling, 03/22/20) Patient developed immediate eyelid swelling after contrast. Patient Home Medication List Home Medication List Reviewed: Yes Atorvastatin Calcium (Atorvastatin Calcium) 20 Mg Tablet, (Reported) Entered as Reported by: ANGELICA DOSS on 01/12/16 0846 Hydrochlorothiazide (Hydrochlorothiazide) 25 Mg Tablet, (Reported) Entered as Reported by: ANGELICA DOSS on 01/12/16 0846 Lisinopril (Lisinopril) 40 Mg Tablet, (Reported) Entered as Reported by: ANGELICA DOSS on 01/12/16 0846 Omeprazole (Omeprazole) 20 Mg Tablet.dr, 20 MG PO BID Prescribed by: HANSEL BUSTOS on 03/13/20 1157 Potassium Chloride (Klor-Con M20) 20 Meq Tab.er.prt, (Reported) Entered as Reported by: ANGELICA DOSS on 01/12/16 0846 Pramipexole Di-HCl (Pramipexole Dihydrochloride) 0.5 Mg Tablet, (Reported) Entered as Reported by: ANGELICA DOSS on 01/12/16 0846 Sucralfate (Carafate) 1 Gm/10 Ml Oral.susp, 1 GM PO QID Prescribed by: HANSEL BUSTOS on 01/12/16 1017 Past Hovjewu-Iywppv-Risujn Hx Patient Social History Living Status: Lives at home with and sister Recent Hopitalizations: No Have you traveled recently?: No Alcohol Use?: No Pt feels they are or have been: No Immunizations Up To Date Date of Influenza Vaccine: Jan 07, 2021 Surgeries Yes (nevus resection from arm) Respiratory No Cardiovascular Yes Hypertension Neurological No Reproductive System : No 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 Genitourinary No Gastrointestinal Yes Gastroesophageal Reflux Musculoskeletal No Endocrine History of Endocrine Disorders: No Cancer No Psychosocial History of Psychiatric Problem: No Integumentary History of Skin or Integumenta: No Review of Systems Constitutional: chills; No fever; malaise EENTM: nose congestion, throat pain; No mouth pain Respiratory: cough, dyspnea on exertion; No hemoptysis, No orthopnea; short of breath Cardiovascular: no symptoms reported; No chest pain, No edema, No palpitations Gastrointestinal: no symptoms reported; No abdominal pain, No constipation, No diarrhea, No nausea, No vomiting Genitourinary: no symptoms reported; No dysuria, No frequency, No hematuria : No Musculoskeletal: no symptoms reported; No back pain, No joint pain, No muscle pain Skin: no symptoms reported; No lesions, No rash Psychiatric/Neurological: No Symptoms Reported Physical Exam Vital Signs Vital Signs - First Documented 05/19/21 05/19/21 22:55 23:55 Temp 38.7 Pulse 89 Resp 17 B/P (MAP) 143/99 (114) Pulse Ox 94 O2 Delivery Room Air O2 Flow Rate 2.00 Capillary Refill : Less Than 3 Seconds Height, Weight, BMI Height: 5'7" Weight: 200lbs. oz. 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 Norm as Tested Skin: Normal Color, Warm/Dry Lymphatic: No Adenopathy Short Stay Diagnosis Discharge Diagnosis-Short Stay Admission Diagnosis: Covid-19 Cough Hypoxia HTN Final Discharge Diagnosis: See Above Conclusion Labs Laboratory Tests 05/19/21 23:00: White Blood Count 4.6, Red Blood Count 4.85, Hemoglobin 14.6, Hematocrit 45, Mean Corpuscular Volume 93, Mean Corpuscular Hemoglobin 30, Mean Corpuscular Hemoglobin Concent 33, Red Cell Distribution Width 13.4, Platelet Count 230, Mean Platelet Volume 9.7, Immature Granulocyte % (Auto) 0, Neutrophils (%) (Auto) 49, Lymphocytes (%) (Auto) 33, Monocytes (%) (Auto) 16H, Eosinophils (%) (Auto) 1, Basophils (%) (Auto) 1, Neutrophils # (Auto) 2.3, Lymphocytes # (Auto) 1.5, Monocytes # (Auto) 0.8, Eosinophils # (Auto) 0.1, Basophils # (Auto) 0.0, Immature Granulocyte # (Auto) 0.0, D-Dimer 0.42, Sodium Level 137, Potassium Level 3.4L, Chloride Level 103, Carbon Dioxide Level 20L, Anion Gap 14, Blood Urea Nitrogen 12, Creatinine 0.78, Estimat Glomerular Filtration Rate 82, BUN/Creatinine Ratio 15, Glucose Level 101, Calcium Level 8.8, Corrected Calcium 8.8, Total Bilirubin 0.8, Aspartate Amino Transf (AST/SGOT) 50H, Alanine Aminotransferase (ALT/SGPT) 46, Alkaline Phosphatase 109, C-Reactive Protein High Sensitivity 1.27H, Total Protein 7.6, Albumin 4.0 05/19/21 23:10: Magnesium Level 2.1, Influenza Type A Antigen NEGATIVE, Influenza Type B Antigen NEGATIVE 05/19/21 23:18: SARS-CoV-2 RNA (RT-PCR) PositiveH 05/20/21 00:16: Urine Color YELLOW, Urine Clarity CLEAR, Urine pH 6.5, Urine Specific [place] 1.020, Urine Protein NEGATIVE, Urine Glucose (UA) NEGATIVE, Urine Ketones NEGATIVE, Urine Nitrite NEGATIVE, Urine Bilirubin NEGATIVE, Urine Urobilinogen 0.2, Urine Leukocyte Esterase NEGATIVE, Urine RBC (Auto) NEGATIVE, Urine RBC NONE, Urine WBC 0-2, Urine Squamous Epithelial Cells 0-2, Urine Crystals NONE, Urine Bacteria TRACE, Urine Casts NONE, Urine Mucus SMALLH, Urine Culture Indicated NO Conclusion/Plan 70 yo F that was admitted with Covid-19 and hypoxia Covid-19 - Dexamethasone and antibiotics Hypoxia - Patient titrated to RA HTN: - Continue home meds Patient doing well and desires to go home, will have f.u with PCP Dr [facility] MD May 20, 2021 12:43
[2021-05-20] MEDS ORDERED: OMEP20CA18 PO (12:56)
[2021-05-20] MEDS ORDERED: POTA-179 PO (12:56)
[2021-05-20] MEDS ORDERED: ATOR20TA66 PO (12:56)
[2021-05-20] MEDS ORDERED: FERR-74 PO (12:56)
[2021-05-20] MEDS ORDERED: LISI40TA9 PO (12:56)
[2021-05-20] MEDS ORDERED: PRAM0.257 PO (12:56)
[2021-05-20] MEDS ORDERED: COVID-19 VACC,MRNA(MODERNA)/PF 100 MCG/0.5 ML VIAL IM ONE (13:00)
[2021-05-20] MEDS ORDERED: PRD20T PO (13:04)
[2021-05-20] MEDS ORDERED: AZIT250T12 PO (13:04)
--- NOTE | 2021-05-20 13:04 | Discharge Summary ---
Discharge [facility] Reconcile Patient Problems Problems Reviewed?: Yes Discharge Medications New, Converted or Re-Newed RX: Transmitted to Pharmacy New Medications: Azithromycin (Azithromycin) 250 Mg Tablet 250 MG PO UD, #6 TAB TAKE 2 TABLETS ON DAY ONE THEN TAKE 1 TABLET DAILY FOR FOUR MORE DAYS Prednisone (Prednisone) 20 Mg Tab 20 MG PO DAILY, #20 TAB Take 3 tabs x 3 days then take 2 tabs x 3 days then take 1 tab x 3 days then 1/2 tab x 4 days Continued Medications: Atorvastatin Calcium (Atorvastatin Calcium) 20 Mg Tablet 20 MG PO DAILY, TAB Ferrous Sulfate (Ferrous Sulfate) 325 Mg Tablet 325 MG PO 1400, TAB Lisinopril (Lisinopril) 40 Mg Tablet 40 MG PO DAILY, TAB Omeprazole (Omeprazole) 20 Mg Capsule.dr 20 MG PO HS, CAP Potassium Chloride (Potassium Chloride) 20 Meq Tab.er.prt 20 MEQ PO DAILY, TAB Pramipexole Di-HCl (Pramipexole Dihydrochloride) 0.5 Mg Tablet 0.5 MG PO 1400, TAB TAKES 0.25MG + 0.5MG TOGETHER Pramipexole Di-HCl (Pramipexole Dihydrochloride) 0.25 Mg Tablet 0.25 MG PO 1400, TAB TAKES 0.25MG + 0.5MG TOGETHER Patient Instructions Goal/Follow Up Appt: F/u with PCP after out of quaretine Return to The Hospital For: - Worseing shortness of breath - Chest pain - Unable to tolerate medications Activity & Diet Discharge Diet: Cardiac Diet Activity as Tolerated: Yes ALEXA NEWTON MD May 20, 2021 12:52
[2021-05-20 14:20] VITALS: BP 137/75
[2021-05-20] MEDS ORDERED: dexAMETHasone 6 MG TAB (DECADRON) PO SCH (21:00)
--- NOTE | 2021-05-24 02:19 | Physician Query Clarification ---
PQ-Uncertain Diagnosis Admission/Discharge Admission Date: May 20, 2021 at 00:41 Discharge Date: May 20, 2021 at 14:55 ALEXA Moran MD The medical record reflects the following clinical scenario: History/Risk Factors: 70 y/o female patient presented with shortness of breath and cough found to have COVID, pneumonia due to COVID infection documented in ER provider notes only. ER provider notes, 05/20: Pneumonia due to COVID, hypoxia. Short stay summary, 05/20: COVID, cough, hypoxia. Clinical Findings: Wedge shaped infiltrates in lungs, cough. Treatment: Dexamethasone and antibiotics. Question: Is Pneumonia a clinically valid diagnosis? Pneumonia was documented in the ER physician notes, 05/20 with no further documentation in the medical record. Please document a response in Progress Note or Discharge Summary. 1. Yes, clinically valid, condition resolved. 2. No, condition ruled out. 3. Other, with explanation of clinical findings. 4. Undetermined, no explanation for clinical findings. PHYSICIAN RESPONSE Diagnosis clinically valid: Yes, Conditon resolved Please remember a lack of response to the above will prompt a phone page by CDI/Coding staff. In responding to this query, please exercise your independent professional judgment. The purpose of this communication is to more accurately reflect the complexity of your patients condition. The fact that a question is asked does not imply that any particular answer is desired or expected. Thank you for your timely response to this clarification. Requestors name: [ ] Phone # [ ] THIS PHYSICIAN QUERY FORM IS A PERMANENT PART OF THE MEDICAL RECORD NELDA FOWLER May 24, 2021 02:19 ALEXA NEWTON MD May 25, 2021 09:28
== END 2021-05-20 14:55 | disposition home or self-care (01) | DRG 177 ==
LOC: EDUNIT# 22:51 → ER 22:52 → 4TH 05-20 00:41 → ER 05-20 01:20
PROVIDERS: ADMIT Family Medicine; ATTEND Family Medicine
DX: U07.1 COVID-19 (principal); J12.82 Pneumonia due to coronavirus disease 2019; R09.02 Hypoxemia; I10 Essential (primary) hypertension; K21.9 Gastro-esophageal reflux disease without esophagitis; Z91.041 Radiographic dye allergy status
CPT/HCPCS: 36415; 71045; 80053; 81000; 83735; 85025; 85379; 86141; 87636; 87804; 91301; 94640; 94760

== ENCOUNTER 2021-10-31 22:23 | Emergency (ER) | payer MEDICARE ==
[~2021-10-31 22:23] MED LIST changes: +ATOR20TA66 PO; +AZIT250T12 PO; +FERR-74 PO; +LISI40TA9 PO; +OMEP20CA18 PO; +OMEP20TA56 PO; -OMEP20TA7 PO; +POTA-179 PO; +PRAM0.257 PO; +PRD20T PO
[2021-10-31 22:29] VITALS: BP 119/107
--- NOTE | 2021-10-31 22:37 | ED Fall/Injury ---
General Chief Complaint: Trauma-Non Activation Stated Complaint: FALL Nursing Triage Note: PT REPORTS FALL FROM STANDING. WAS WALKING IN YARD AND TRIPPED OVER A STONE. FELL FACE FIRST AND STRUCK FACE ON GROUND. -LOC -THINNERS Source: patient Exam Limitations: no limitations History of Present Illness Date Seen by Provider: Oct 31, 2021 Time Seen by Provider: 22:16 Initial Comments Patient to the ER by EMS from home with chief complaint she was walking through the backyard and her sidewalk is uneven and she tripped and fell landing on her face. She did not lose consciousness. She is not on blood thinners. She takes a blood pressure medicine and atorvastatin. She is not having any pain other than her face. She was having some pain in her mid back but that has gone away by the time she arrived to the ER. No numbness nausea, vomiting, diarrhea. No history of diabetes or coronary disease. She is also having some pain in her right wrist for where she landed on outstretched hand. Allergies and Home Medications Allergies Coded Allergies: Iodinated Contrast Media (Verified Allergy, Intermediate, Facial Swelling, 03/22/20) Patient developed immediate eyelid swelling after contrast. Patient Home Medication List Home Medication List Reviewed: Yes Atorvastatin Calcium (Atorvastatin Calcium) 20 Mg Tablet, 20 MG PO DAILY, (Reported) Entered as Reported by: AYANNA SARMIENTO on 05/20/21 125 Azithromycin (Azithromycin) 250 Mg Tablet, 250 MG PO UD Prescribed by: ALEXA NEWTON on 05/20/21 1304 Ferrous Sulfate (Ferrous Sulfate) 325 Mg Tablet, 325 MG PO 1400, (Reported) Entered as Reported by: AYANNA SARMIENTO on 05/20/21 125 Lisinopril (Lisinopril) 40 Mg Tablet, 40 MG PO DAILY, (Reported) Entered as Reported by: AYANNA SARMIENTO on 05/20/21 1256 Omeprazole (Omeprazole) 20 Mg Capsule.dr, 20 MG PO HS, (Reported) Entered as Reported by: AYANNA SARMIENTO on 05/20/21 125 Potassium Chloride (Potassium Chloride) 20 Meq Tab.er.prt, 20 MEQ PO DAILY, (Reported) Entered as Reported by: AYANNA SARMIENTO on 05/20/21 1256 Pramipexole Di-HCl (Pramipexole Dihydrochloride) 0.5 Mg Tablet, 0.5 MG PO 1400, (Reported) Entered as Reported by: ANGELICA DOSS on 01/12/16 0846 Pramipexole Di-HCl (Pramipexole Dihydrochloride) 0.25 Mg Tablet, 0.25 MG PO 1400, (Reported) Entered as Reported by: AYANNA SARMIENTO on 05/20/21 1256 Prednisone (Prednisone) 20 Mg Tab, 20 MG PO DAILY Prescribed by: ALEXA NEWTON on 05/20/21 1304 Review of Systems Review of Systems Constitutional: No chills, No diaphoresis Eyes: Denies Blindness, Denies Blurred Vision Ears, Nose, Mouth, Throat: denies ear pain, denies ear discharge Respiratory: No cough, No phlegm, No short of breath Cardiovascular: No edema, No palpitations Gastrointestinal: No abdominal pain, No nausea, No vomiting Genitourinary: No dysuria, No frequency Musculoskeletal: back pain, joint pain All Other Systems Reviewed Negative Unless Noted: Yes Past Xtarcgj-Irpzbk-Hllocv Hx Patient Social History Tobacco Use?: No Substance use?: No Alcohol Use?: No Pt feels they are or have been: No Immunizations Up To Date Influenza Vaccine Up-to-Date: No; Not Current First/Initial COVID19 Vaccinat: UNKNOWN DATE Second COVID19 Vaccination Kedar: UNKNOWN DATE Third COVID19 Vaccination Date: Unvaccination COVID19 Vaccine Behavioral Health Aide: UNKNOWN Past Medical History Surgeries: Yes (nevus resection from arm) Respiratory: No Cardiac: Yes Hypertension Neurological: No 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 oz. 90.871978tl; 42.95 BMI Method:Estimated General Appearance: WD/WN, no apparent distress HEENT: PERRL/EOMI, normal ENT inspection, TMs normal, pharynx normal Neck: non-tender, full range of motion, supple, normal inspection Cardiovascular: normal peripheral pulses, regular rate, rhythm Respiratory: lungs clear, normal breath sounds, no respiratory distress, no accessory muscle use Peripheral Pulses: 2+ Radial Pulses (R), 2+ Radial Pulses (L) Gastrointestinal: normal bowel sounds, non tender, soft Back: normal inspection, no CVA tenderness, no vertebral tenderness Extremities: non-tender, normal inspection, normal capillary refill Neurologic/Psychiatric: alert, normal mood/affect, oriented x 3 Skin: normal color, warm/dry Nimisha Coma Score Best Eye Response: (4) Open Spontaneously Best Verbal Response: (5) Oriented Best Motor Response: (6) Obeys Commands Nimisha Total: 15 Progress/Results/Core Measures Results/Orders My Orders Orders - PILLO SEALS Ct Head/Face/Cervical Wo (10/31/21 22:25) Hand, Right, 3 Views (10/31/21 22:42) Vital Signs/I&O 10/31/21 10/31/21 22:29 22:29 Temp 37.0 37.0 Pulse 60 60 Resp 18 18 B/P (MAP) 119/107 (111) 119/107 (111) Pulse Ox 96 96 O2 Delivery Room Air Room Air Blood Pressure Mean: 111 Progress Progress Note : Time: 22:40 Progress Note Plain film right wrist, CT head face and neck. C-collar cleared at 2219. She is not having any tenderness in her back to palpation no step-offs so will not do any imaging at this time. Diagnostic Imaging Diagonstic Imaging: CT Plain Films/CT/US/NM/MRI: facial bones, c-spine, head Comments No acute intracranial abnormality. No acute findings in the face. No acute findings in the cervical spine. 2.4 cm right thyroid nodule, consider outpatient ultrasound for correlation. [facility] [place], [place] NAME: [facility] REC#: [id number] PT STATUS: DEP ER : 1950 PHYSICIAN: PILLO SEALS MD ADMIT DATE: 10/31/21/ER Signed Date of Exam:10/31/21 CT HEAD/FACE/CERVICAL WO CLINICAL INDICATION: Patient status post fall. Exam: Axial Head CT without IV contrast with sagittal and coronal reformations. Axial Maxillofacial CT scan without IV contrast with sagittal and coronal reformations. Axial CT scan of the cervical spine with sagittal and coronal reformations. Auto Exposure Controls were utilized during the CT exam to meet ALARA standards for radiation dose reduction. Comparison: None. Findings: Head and maxillofacial CT: There is no evidence of acute cerebral infarct, intracranial hemorrhage, or gross mass effect. The brain parenchymal volume appears appropriate for patient's age. There is subtle patchy areas of low-density involving the white matter of both cerebral hemispheres, likely representing chronic small vessel ischemic disease. There is normal monsivais-white matter distinction. There is no significant midline shift or herniation. There is no evidence of hydrocephalus. The basal cisterns are unremarkable. There is no skull or maxillofacial fracture. Otherwise, the skull, extracranial soft tissue, and orbits are unremarkable. There is minimal mucosal thickening involving left maxillary sinus. Temporal bones show no significant abnormality. Poor dentition is seen with dental caries and periapical erosions are seen especially involving the maxillary, mandibular left molar teeth regions. Cervical spine: There is no acute cervical spine fracture or dislocation. The vertebral body heights and intervertebral disk heights are maintained. There is an area of nodularity of the right thyroid lobe seen measuring up to around 2 cm. Impression: 1: There is no evidence of acute intracranial process. 2: There is no skull or maxillofacial fracture. 3: There is no acute cervical spine fracture or dislocation. 5: Poor dentition is seen. Dental consultation is suggested. 6: There are right thyroid lobe nodules. Nonemergent thyroid ultrasound would better evaluate. I agree with [facility] report. Dictated by: Dictated on workstation # [id number] Dict: 11/01/21 0705 Trans: 11/01/21 1209 [place] [id number] Interpreted by: JAGJIT KAY MD Electronically signed by: JAGJIT KAY MD 11/01/21 1209 Reviewed: Reviewed by Me Diagonstic Imaging: Xray Plain Films/CT/US/NM/MRI: hand (Right) Comments No acute osseous abnormality on 3 view right hand. [facility] [place], [place] NAME: [facility] REC#: [id number] PT STATUS: DEP ER : 1950 PHYSICIAN: PILLO SEALS MD ADMIT DATE: 10/31/21/ER Signed Date of Exam:10/31/21 HAND, RIGHT, 3 VIEWS CLINICAL INDICATION: Patient status post fall. EXAM: X-ray of the right hand, 3 views. COMPARISON: None. FINDINGS AND IMPRESSION: There is no acute fracture or dislocation. There is no significant bone or joint abnormality. Osteopenia is noted. Dictated by: Dictated on workstation # [id number] Dict: 11/01/2121 Trans: 11/01/21 1211 [place] [id number] Interpreted by: JAGJIT KAY MD Electronically signed by: JAGJIT KAY MD 11/01/21 1211 Reviewed: Reviewed by Me Departure Impression Primary Impression: Fall Qualified Codes: W19.XXXA - Unspecified fall, initial encounter Additional Impression: Thyroid nodule Disposition: HOME, SELF-CARE Condition: Stable Departure-Patient Inst. Decision time for Depature: 01:00 Referrals: LUIS ANTONIO BELL MD (PCP/Family) Primary Care Physician Patient Instructions: Preventing Falls ED, Thyroid Nodules Add. Discharge Instructions: Follow-up with your primary care doctor to discuss further appropriate imaging of your thyroid. All discharge instructions reviewed with patient and/or family. Voiced understanding. Copy Copies To 1: LUIS ANTONIO BELL MD, TITUS J Oct 31, 2021 22:37
--- NOTE | 2021-11-01 07:17 | Diagnostic Imaging Report ---
CLINICAL INDICATION: Patient status post fall. Exam: Axial Head CT without IV contrast with sagittal and coronal reformations. Axial Maxillofacial CT scan without IV contrast with sagittal and coronal reformations. Axial CT scan of the cervical spine with sagittal and coronal reformations. Auto Exposure Controls were utilized during the CT exam to meet ALARA standards for radiation dose reduction. Comparison: None. Findings: Head and maxillofacial CT: There is no evidence of acute cerebral infarct, intracranial hemorrhage, or gross mass effect. The brain parenchymal volume appears appropriate for patient's age. There is subtle patchy areas of low-density involving the white matter of both cerebral hemispheres, likely representing chronic small vessel ischemic disease. There is normal monsivais-white matter distinction. There is no significant midline shift or herniation. There is no evidence of hydrocephalus. The basal cisterns are unremarkable. There is no skull or maxillofacial fracture. Otherwise, the skull, extracranial soft tissue, and orbits are unremarkable. There is minimal mucosal thickening involving left maxillary sinus. Temporal bones show no significant abnormality. Poor dentition is seen with dental caries and periapical erosions are seen especially involving the maxillary, mandibular left molar teeth regions. Cervical spine: There is no acute cervical spine fracture or dislocation. The vertebral body heights and intervertebral disk heights are maintained. There is an area of nodularity of the right thyroid lobe seen measuring up to around 2 cm. Impression: 1: There is no evidence of acute intracranial process. 2: There is no skull or maxillofacial fracture. 3: There is no acute cervical spine fracture or dislocation. 5: Poor dentition is seen. Dental consultation is suggested. 6: There are right thyroid lobe nodules. Nonemergent thyroid ultrasound would better evaluate. I agree with [facility] report. Dictated by: Dictated on workstation # [id number]
--- NOTE | 2021-11-01 07:25 | Diagnostic Imaging Report ---
CLINICAL INDICATION: Patient status post fall. EXAM: X-ray of the right hand, 3 views. COMPARISON: None. FINDINGS AND IMPRESSION: There is no acute fracture or dislocation. There is no significant bone or joint abnormality. Osteopenia is noted. Dictated by: Dictated on workstation # [id number]
== END 2021-11-01 00:42 | disposition home or self-care (01) ==
LOC: EDUNIT# 22:23 → ER 22:25
DX: M25.531 Pain in right wrist (principal); E04.1 Nontoxic single thyroid nodule; I10 Essential (primary) hypertension; Z79.899 Other long term (current) drug therapy; W01.198A Fall on same level from slipping, tripping and stumbling with subsequent striking against other object, initial encounter; Y92.007 Garden or yard of unspecified non-institutional (private) residence as the place of occurrence of the external cause
CPT/HCPCS: 70450; 70486; 72125; 73130; 99283

== ENCOUNTER 2022-05-22 05:48 | Outpatient (CLI) | payer MEDICARE ==
[~2022-05-22] VITALS: Ht 154.9 cm; Wt 96.8 kg
== END 2022-05-22 15:13 ==
LOC: PREOP 05:48
PROVIDERS: ATTEND Specialist
DX: Z01.818 Encounter for other preprocedural examination (principal)

== ENCOUNTER 2022-05-26 07:24 | Day surgery (SDC) | payer MEDICARE ==
[~2022-05-26] VITALS: Ht 154.9 cm; Wt 96.8 kg
[2022-05-26 07:35] VITALS: BP_SYST 172; BP_SYST 189; BP_DIAS 79; BP_DIAS 97
[2022-05-26] MEDS ORDERED: POVIDONE (BETADINE) OPHTH SOLN 5% 30 ML OP ONE (07:45)
[2022-05-26] MEDS ORDERED: TIMOLOL 0.5% (CATARACTS) 0.3 ML BTL OU PRN (07:45)
[2022-05-26] MEDS ORDERED: MOXIFLOXACIN OPHTH SOLN 5 MG/ML 0.3 ML SYRINGE OP ONE (07:45)
[2022-05-26] MEDS: TETRACAINE 0.5% OPHTH SOLN 4 ML BTL (SINGLE DOSE ONLY) OU PRN ×4 (07:48→08:02)
[2022-05-26] MEDS: PHENYLEPHRINE 10% OPHTH (NEO-SYN) 5 ML BTL OU SCH ×3 (07:53→08:02)
[2022-05-26] MEDS: TROPICAMIDE 1% OPH SOLN (MYDRIACYL) 15 ML BTL OP SCH ×3 (07:53→08:02)
[2022-05-26] MEDS ORDERED: MIDAZOLAM 2 MG/2 ML (VERSED) VIAL ONE (08:26)
--- NOTE | 2022-05-26 08:29 | Ophthalmologist Pre-Op Note ---
Pre-Operative Progress Note H&P Reviewed The H&P was reviewed, patient examined and no changes noted. Date H&P Reviewed: May 26, 2022 Time H&P Reviewed: 08:29 Pre-Op Dx Cataract, Right Eye DARRION ÁLVAREZ MD May 26, 2022 08:29
--- NOTE | 2022-05-26 08:53 | Ophthalmology Operative Report ---
Cataract removal/placement IOL PREOPERATIVE DIAGNOSIS: Cataract Right Eye POSTOPERATIVE DIAGNOSIS: Cataract Right Eye PROCEDURE: Cataract removal and placement of posterior chamber implant, right eye SURGEON: Enmanuel Álvarez ANESTHESIA: Topical with sedation COMPLICATIONS: None ESTIMATED BLOOD LOSS: Minimal DESCRIPTION OF PROCEDURE: After proper informed consent was obtained, the patient, a 71 female, was taken to the Operating Room and the right eye was anesthetized with tetracaine. The right eye was then prepped and draped in the usual manner. A wire lid speculum was placed. A paracentesis was made at the left hand position. Preservative free lidocaine was injected into the anterior chamber followed by viscoelastic. A clear corneal incision was made in the temporal position. A capsulorrhexis was preformed and the central nuclear and cortical material were removed. The posterior capsule was polished and Robin 6.0 AU00T0 IOL was placed into the capsular bag. The residual viscoelastic was aspirated and balanced saline solution was injected into the anterior chamber. Moxifloxacin was injected into the anterior chamber. The wound was checked and found to be water tight. The patient tolerated the procedure well without complications. ENMANUEL ÁLVAREZ MD May 26, 2022 08:52
[2022-05-26] MEDS ORDERED: acetaZOLAMIDE ER 500 MG CAP (DIAMOX SEQUELS) PO ONE (10:15)
--- NOTE | 2022-05-26 12:02 | Anesthesia-General Post-Op ---
MAC Patient Condition Mental Status/LOC: Same as Preop Cardiovascular: Satisfactory Nausea/Vomiting: Absent Respiratory: Satisfactory Pain: Controlled Complications: Absent Post Op Complications Complications None Follow Up Care/Instructions Patient Instructions None needed. Anesthesiology Discharge Order Discharge Order Patient is doing well, no complaints, stable vital signs, no apparent adverse anesthesia problems. No complications reported per nursing. MINGO OLMEDO CRNA May 26, 2022 12:02
== END 2022-05-26 09:02 | disposition home or self-care (01) ==
LOC: SDC 07:24
PROVIDERS: ATTEND Specialist
DX: H25.9 Unspecified age-related cataract (principal); K21.9 Gastro-esophageal reflux disease without esophagitis; Z79.899 Other long term (current) drug therapy; Z85.828 Personal history of other malignant neoplasm of skin

== ENCOUNTER 2022-06-05 05:34 | Outpatient (CLI) | payer MEDICARE | END 2022-06-07 07:53 | disposition home or self-care (01) | LOC: PREOP 05:34 | PROVIDERS: ATTEND Specialist | DX: Z01.818 Encounter for other preprocedural examination (principal) ==

== ENCOUNTER → 2022-06-09 | Day surgery (SDC) | payer MEDICARE ==
[~2022-06-09] VITALS: Ht 154.9 cm; Wt 96.8 kg
[~2022-06-09] MED LIST changes: +MOXIFLOXACIN OPHTH SOLN 5 MG/ML 0.3 ML SYRINGE OP ONE; +PHENYLEPHRINE 10% OPHTH (NEO-SYN) 5 ML BTL OU SCH; +POVIDONE (BETADINE) OPHTH SOLN 5% 30 ML OP ONE; +TETRACAINE 0.5% OPHTH SOLN 4 ML BTL (SINGLE DOSE ONLY) OU PRN; +TIMOLOL 0.5% (CATARACTS) 0.3 ML BTL OU PRN; +TROPICAMIDE 1% OPH SOLN (MYDRIACYL) 15 ML BTL OP SCH; +acetaZOLAMIDE ER 500 MG CAP (DIAMOX SEQUELS) PO ONE
[2022-06-09 06:40] VITALS: BP 149/89
== END | disposition home or self-care (01) ==
LOC: SDC 06:49
PROVIDERS: ATTEND Specialist
DX: H25.9 Unspecified age-related cataract (principal); Z53.09 Procedure and treatment not carried out because of other contraindication

== ENCOUNTER → 2022-08-08 | Outpatient (CLI) | payer MEDICARE ==
[~2022-08-08] MED LIST changes: -MOXIFLOXACIN OPHTH SOLN 5 MG/ML 0.3 ML SYRINGE OP ONE; -PHENYLEPHRINE 10% OPHTH (NEO-SYN) 5 ML BTL OU SCH; -POVIDONE (BETADINE) OPHTH SOLN 5% 30 ML OP ONE; -TETRACAINE 0.5% OPHTH SOLN 4 ML BTL (SINGLE DOSE ONLY) OU PRN; -TIMOLOL 0.5% (CATARACTS) 0.3 ML BTL OU PRN; -TROPICAMIDE 1% OPH SOLN (MYDRIACYL) 15 ML BTL OP SCH; -acetaZOLAMIDE ER 500 MG CAP (DIAMOX SEQUELS) PO ONE
== END | disposition home or self-care (01) ==
LOC: PREOP 05:48
PROVIDERS: ATTEND Specialist
DX: Z01.818 Encounter for other preprocedural examination (principal)

== ENCOUNTER 2022-08-11 10:15 | Day surgery (SDC) | payer MEDICARE ==
[~2022-08-11] VITALS: Ht 154.9 cm; Wt 96.8 kg
[2022-08-11] MEDS ORDERED: TIMOLOL 0.5% (CATARACTS) 0.3 ML BTL OU PRN (11:45)
[2022-08-11] MEDS ORDERED: POVIDONE (BETADINE) OPHTH SOLN 5% 30 ML OP ONE (11:45)
[2022-08-11] MEDS ORDERED: MOXIFLOXACIN OPHTH SOLN 5 MG/ML 0.3 ML SYRINGE OP ONE (11:45)
[2022-08-11] MEDS: TETRACAINE 0.5% OPHTH SOLN 4 ML BTL (SINGLE DOSE ONLY) OU PRN ×4 (11:51→12:13)
[2022-08-11 11:56] VITALS: BP 167/84
[2022-08-11] MEDS: PHENYLEPHRINE 10% OPHTH (NEO-SYN) 5 ML BTL OU SCH ×3 (11:59→12:13)
[2022-08-11] MEDS: TROPICAMIDE 1% OPH SOLN (MYDRIACYL) 15 ML BTL OP SCH ×3 (11:59→12:13)
[2022-08-11] MEDS ORDERED: MIDAZOLAM 2 MG/2 ML (VERSED) VIAL ONE (12:16)
--- NOTE | 2022-08-11 12:41 | Ophthalmologist Pre-Op Note ---
Pre-Operative Progress Note H&P Reviewed The H&P was reviewed, patient examined and no changes noted. Date H&P Reviewed: August 11, 2022 Time H&P Reviewed: 12:41 Pre-Op Dx Cataract, Left Eye DARRION ÁLVAREZ MD August 11, 2022 12:41
--- NOTE | 2022-08-11 13:02 | Ophthalmology Operative Report ---
Cataract removal/placement IOL PREOPERATIVE DIAGNOSIS: Cataract Left Eye POSTOPERATIVE DIAGNOSIS: Cataract Left Eye PROCEDURE: Cataract removal and placement of posterior chamber implant, left eye SURGEON: Enmanuel Álvarez ANESTHESIA: Topical with sedation COMPLICATIONS: None ESTIMATED BLOOD LOSS: Minimal DESCRIPTION OF PROCEDURE: After proper informed consent was obtained, the patient, a 71 female, was taken to the Operating Room and the left eye was anesthetized with tetracaine. The left eye was then prepped and draped in the usual manner. A wire lid speculum was placed. A paracentesis was made at the left hand position. Preservative free lidocaine was injected into the anterior chamber followed by viscoelastic. A clear corneal incision was made in the temporal position. A capsulorrhexis was preformed and the central nuclear and cortical material were removed. The posterior capsule was polished and an Robin 9.0 AU00T0 was placed into the capsular bag. The residual viscoelastic was aspirated and balanced saline solution was injected into the anterior chamber. Moxifloxacin was injected into the anterior chamber. The wound was checked and found to be water tight. The patient tolerated the procedure well without complications. ENMANUEL ÁLVAREZ MD August 11, 2022 13:02
[2022-08-11 13:07] VITALS: BP 167/93
--- NOTE | 2022-08-11 13:13 | Anesthesia-General Post-Op ---
MAC Patient Condition Mental Status/LOC: Same as Preop Cardiovascular: Satisfactory Nausea/Vomiting: Absent Respiratory: Satisfactory Pain: Controlled Complications: Absent Post Op Complications Complications None Follow Up Care/Instructions Patient Instructions None needed. Anesthesiology Discharge Order Discharge Order Patient is doing well, no complaints, stable vital signs, no apparent adverse anesthesia problems. No complications reported per nursing. INGRID JARVIS CRNA August 11, 2022 13:13
[2022-08-11] MEDS ORDERED: acetaZOLAMIDE ER 500 MG CAP (DIAMOX SEQUELS) PO ONE (13:15)
== END 2022-08-11 13:13 | disposition home or self-care (01) ==
LOC: SDC 10:15
PROVIDERS: ATTEND Specialist
DX: H25.9 Unspecified age-related cataract (principal)

== ENCOUNTER → 2022-09-08 | Outpatient (CLI) | payer MEDICARE | LOC: CARD 13:25 | PROVIDERS: ATTEND Internal Medicine Cardiovascular Disease | DX: I34.0 Nonrheumatic mitral (valve) insufficiency (principal); I11.9 Hypertensive heart disease without heart failure; I25.10 Atherosclerotic heart disease of native coronary artery without angina pectoris | CPT/HCPCS: 93306 ==

== ENCOUNTER 2023-03-20 12:55 | Emergency (ER) | payer MEDICARE ==
[~2023-03-20] VITALS: Ht 154.9 cm; Wt 79.3 kg
[2023-03-20 13:27] LABS: BASOPHILS % (AUTO) 1 % (0-10); EOSINOPHILS # (AUTO) 0.1 10^3/uL (0.0-0.3); EOSINOPHILS % (AUTO) 2 % (0-10); HEMATOCRIT 47 % (35-52); HEMOGLOBIN 15.1 g/dL (11.5-16.0); LYMPHOCYTES # (AUTO) 1.6 10^3/uL (1.0-4.0); LYMPHOCYTES % (AUTO) 32 % (12-44); MEAN CORPUSCULAR HEMOGLOBIN 30 pg (25-34); MEAN CORPUSCULAR HGB CONC 32 g/dL (32-36); MEAN CORPUSCULAR VOLUME 93 fL (80-99); MEAN PLATELET VOLUME 9.8 fL (9.0-12.2); MONOCYTES # (AUTO) 0.5 10^3/uL (0.0-1.0); MONOCYTES % (AUTO) 10 % (0-12); NEUTROPHILS # (AUTO) 2.7 10^3/uL (1.8-7.8); NEUTROPHILS % (AUTO) 54 % (42-75); PLATELET COUNT 224 10^3/uL (130-400); WHITE BLOOD COUNT 4.9 10^3/uL (4.3-11.0)
[2023-03-20] MEDS ORDERED: ONDANSETRON INJECTION 4 MG/2 ML (SDV) IVP ONE (13:30)
[2023-03-20] MEDS ORDERED: LACTATED RINGERS 1,000 ML 1,000 ML IV ONE (13:30)
--- NOTE | 2023-03-20 13:31 | ED Abdominal Pain ---
General Chief Complaint: Abdominal/GI Problems Stated Complaint: HEADACHE | NAUSEA | VOMITING Nursing Triage Note: PT ARRIVED BY EMS WITH CC OF N/V, DIARRHEA THAT STARTED TODAY, AND ORTIZ X3 DAYS. PT STATES THAT SHE HAS NOT TAKEN ANY MEDICATION FOR SYMPTOMS. PT DENIES BEING EXPOSED TO ANY ILLNESS AT THIS TIME. Source of Information: Patient Exam Limitations: No Limitations History of Present Illness Date Seen by Provider: Mar 20, 2023 Time Seen by Provider: 13:25 Allergies and Home Medications Allergies Coded Allergies: Iodinated Contrast Media (Verified Allergy, Intermediate, Facial Swelling, 05/22/22) Patient developed immediate eyelid swelling after contrast. Patient Home Medication List Atorvastatin Calcium (Atorvastatin Calcium) 20 Mg Tablet, 20 MG PO DAILY, (Reported) Entered as Reported by: AYANNA SARMIENTO on 05/20/21 1256 Ferrous Sulfate (Ferrous Sulfate) 325 Mg Tablet, 325 MG PO 1400, (Reported) Entered as Reported by: AYANNA SARMIENTO on 05/20/21 1256 Lisinopril (Lisinopril) 40 Mg Tablet, 40 MG PO DAILY, (Reported) Entered as Reported by: AYANNA SARMIENTO on 05/20/21 1256 Omeprazole (Omeprazole) 20 Mg Capsule.dr, 20 MG PO HS, (Reported) Entered as Reported by: AYANNA SARMIENTO on 05/20/21 1256 Potassium Chloride (Potassium Chloride) 20 Meq Tab.er.prt, 20 MEQ PO DAILY, (Reported) Entered as Reported by: AYANNA SARMIENTO on 05/20/21 1256 Pramipexole Di-HCl (Pramipexole Dihydrochloride) 0.5 Mg Tablet, 0.5 MG PO 1400, (Reported) Entered as Reported by: ANGELICA DOSS on 01/12/16 0846 Pramipexole Di-HCl (Pramipexole Dihydrochloride) 0.25 Mg Tablet, 0.25 MG PO 1400 , (Reported) Entered as Reported by: AYANNA SARMIENTO on 05/20/21 1256 Past Uuitesq-Yqmues-Ybnmab Hx Patient Social History Tobacco Use?: No Substance use?: No Alcohol Use?: No Immunizations Up To Date First/Initial COVID19 Vaccinat: UNKNOWN DATE Second COVID19 Vaccination Kedar: UNKNOWN DATE Third COVID19 Vaccination Date: UNKNOWN DATE Past Medical History Surgery/Hospitalization HX: HTN, SKIN CANCER Surgeries: Yes (nevus resection from arm) Respiratory: No Cardiac: Yes Hypertension Neurological: No 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 oz. 90.081630bs; 33.00 BMI Method:Estimated Progress/Results/Core Measures Results/Orders Lab Results Laboratory Tests Test 03/20/23 13:02 03/20/23 13:30 Range/Units White Blood Count 4.9 4.3-11.0 10^3/uL Red Blood Count 5.01 3.80-5.11 10^6/uL Hemoglobin 15.1 11.5-16.0 g/dL Hematocrit 47 35-52 % Mean Corpuscular Volume 93 80-99 fL Mean Corpuscular Hemoglobin 30 25-34 pg Mean Corpuscular Hemoglobin Concent 32 32-36 g/dL Red Cell Distribution Width 13.6 10.0-14.5 % Platelet Count 224 130-400 10^3/uL Mean Platelet Volume 9.8 9.0-12.2 fL Immature Granulocyte % (Auto) 0 % Neutrophils (%) (Auto) 54 42-75 % Lymphocytes (%) (Auto) 32 12-44 % Monocytes (%) (Auto) 10 0-12 % Eosinophils (%) (Auto) 2 0-10 % Basophils (%) (Auto) 1 0-10 % Neutrophils # (Auto) 2.7 1.8-7.8 10^3/uL Lymphocytes # (Auto) 1.6 1.0-4.0 10^3/uL Monocytes # (Auto) 0.5 0.0-1.0 10^3/uL Eosinophils # (Auto) 0.1 0.0-0.3 10^3/uL Basophils # (Auto) 0.0 0.0-0.1 10^3/uL Immature Granulocyte # (Auto) 0.0 0.0-0.1 10^3/uL Sodium Level 141 135-145 MMOL/L Potassium Level 3.3 L 3.6-5.0 MMOL/L Chloride Level 108 H 98-107 MMOL/L Carbon Dioxide Level 25 21-32 MMOL/L Anion Gap 8 5-14 MMOL/L Blood Urea Nitrogen 21 H 7-18 MG/DL Creatinine 0.73 0.60-1.30 MG/DL Estimat Glomerular Filtration Rate 87 BUN/Creatinine Ratio 29 Glucose Level 94 70-105 MG/DL Calcium Level 8.9 8.5-10.1 MG/DL Corrected Calcium 8.9 8.5-10.1 MG/DL Magnesium Level 2.1 1.6-2.4 MG/DL Total Bilirubin 0.7 0.1-1.0 MG/DL Aspartate Amino Transf (AST/SGOT) 38 H 5-34 U/L Alanine Aminotransferase (ALT/SGPT) 27 0-55 U/L Alkaline Phosphatase 81 40-136 U/L Total Protein 7.3 6.4-8.2 GM/DL Albumin 4.0 3.2-4.5 GM/DL Lipase 33 8-78 U/L Influenza Type A (RT-PCR) Not Detected Not Detecte Influenza Type B (RT-PCR) Not Detected Not Detecte SARS-CoV-2 RNA (RT-PCR) Not Detected Not Detecte My Orders Orders - HANSEL MATA MD Cbc And Automated Diff (03/20/23 13:22) Comprehensive Metabolic Panel (03/20/23 13:22) Magnesium (03/20/23 13:22) Ed Iv/Invasive Line Start (03/20/23 13:22) Covid 19 Inhouse Test (03/20/23 13:22) Influenza A And B By Pcr (03/20/23 13:22) Lactated Ringers 1,000 Ml (Lactated Ring (03/20/23 13:30) Ondansetron Injection (Ondansetron Inj (03/20/23 13:30) Lipase (03/20/23 13:29) Ketorolac Injection (Ketorolac Injection (03/20/23 16:00) Medications Given in ED Current Medications Medications Dose Ordered Sig/Kelly Route Start Time Stop Time Status Last Admin Dose Admin Lactated Ringer's 1,000 ml @ 0 mls/hr Q0M ONCE IV 03/20/23 13:30 03/20/23 13:31 DC 03/20/23 13:31 0 MLS/HR Ondansetron HCl 8 mg ONCE ONCE IVP 03/20/23 13:30 03/20/23 13:31 DC 03/20/23 13:33 8 MG Vital Signs/I&O 03/20/23 12:58 Temp 36.9 Pulse 75 B/P (MAP) 186/111 (136) Pulse Ox 95 O2 Delivery Room Air Blood Pressure Mean: 136 Departure Impression Primary Impression: Diarrhea Qualified Codes: R19.7 - Diarrhea, unspecified Additional Impression: Headache Qualified Codes: R51.9 - Headache, unspecified Disposition: 01 HOME, SELF-CARE Condition: Improved Departure-Patient Inst. Decision time for Depature: 15:55 Referrals: LUIS ANTONIO BELL MD (PCP/Family) Primary Care Physician Patient Instructions: Diarrhea in adolescents and adults, Headache, Adult Add. Discharge Instructions: Drink plenty of clear liquids to stay well-hydrated. Gradually advance your diet with small quantities of bland food as tolerated. Avoid dairy and fatty/greasy foods for at least 48 hours after your diarrhea stops. You may use Zofran (ondansetron) as prescribed for nausea and vomiting. You may take Tylenol (acetaminophen) up to 1000 mg every 6 hours as needed for headache or pain. You may sparingly add ibuprofen up to 400 mg every 6 hours as needed for additional pain relief. Your potassium was slightly low in the emergency room. Try to consume foods and beverages high in potassium such as sports drinks, Pedialyte, citrus fruits and juices, potatoes, etc. Return to the ER if you have worsening symptoms despite following these instructions. All discharge instructions reviewed with patient and/or family. Voiced understanding. Scripts Ondansetron (Ondansetron Odt) 4 Mg Tab.rapdis 4 MG SL Q4H PRN for NAUSEA/VOMITING, #10 TAB Prov: HANSEL MATA MD 03/20/23 HANSEL MATA MD Mar 20, 2023 13:30
[2023-03-20 13:44] LABS: BILIRUBIN,TOTAL 0.7 MG/DL (0.1-1.0); CALCIUM 8.9 MG/DL (8.5-10.1); CREATININE SERUM 0.73 MG/DL (0.60-1.30); MAGNESIUM 2.1 MG/DL (1.6-2.4); POTASSIUM 3.3 MMOL/L (3.6-5.0); TOTAL PROTEIN 7.3 GM/DL (6.4-8.2)
[2023-03-20] MEDS ORDERED: ONDA4TAB11 SL (16:00)
[2023-03-20] MEDS ORDERED: KETOROLAC INJ 30 MG/ML VIAL IVP ONE (16:00)
[2023-03-20 16:06] VITALS: BP 142/82
== END 2023-03-20 16:09 | disposition home or self-care (01) ==
LOC: EDUNIT# 12:55 → ER 12:56
DX: R19.7 Diarrhea, unspecified (principal); R51.9 Headache, unspecified; R11.2 Nausea with vomiting, unspecified
CPT/HCPCS: 36415; 80053; 83690; 83735; 85025; 87636